=== PATIENT | male | born 1990 | race Caucasian/White ===

== ENCOUNTER 2024-08-24 08:10 | Day surgery (SDC) | payer OTHER ==
[2024-08-24 08:47] VITALS: BMI 26.6
[2024-08-24] MEDS: SODIUM CHLORIDE 0.9% 500 ML INFUS.BAG IV ONE (09:14)
[2024-08-24] MEDS: ACETAMINOPHEN 1000 MG/100 ML BAG IVPB ONE (09:14)
[2024-08-24 09:20] LABS: ABSOLUTE IMMATURE GRANULOCYTES 0.07 x10^3/uL (0.0-0.031); BASOPHILS # 0.06 x10^3/uL (0.01-0.08); EOSINOPHIL % 0.1 % (0.8-7.0); EOSINOPHILS # 0.01 x10^3/uL (0.04-0.54); HEMATOCRIT 46.9 % (40.1-51.0); HEMOGLOBIN 15.7 g/dL (13.7-17.5); MCHC 33.5 g/dl (32.3-36.5); MEAN CELL VOLUME 90.7 fl (79.0-92.2); MEAN PLT VOLUME 10.2 fl (9.4-12.4); MONOCYTE # 0.78 x10^3/uL (0.30-0.82); MONOCYTE % 4.8 % (5.3-12.2); PH,URINE 7.5 (5.0-8.0); PLATELET COUNT 206 x10^3/uL (163-337); URINE APPEARANCE CLEAR; URINE BILIRUBIN NEGATIVE (NEGATIVE); URINE COLOR YELLOW; URINE GLUCOSE (UA) NEGATIVE (NEGATIVE); URINE KETONE NEGATIVE (NEGATIVE); URINE LEUK ESTERASE NEGATIVE (NEGATIVE); URINE NITRITE NEGATIVE (NEGATIVE); URINE PROTEIN NEGATIVE (NEGATIVE); URINE UROBILINOGEN 0.2 mg/dL (0.2-1.0)
[2024-08-24 09:38] LABS: POTASSIUM 3.8 mmol/L (3.5-5.1)
[2024-08-24 09:39] LABS: CALCIUM 9.8 mg/dL (8.5-10.1)
[2024-08-24 09:40] LABS: BLOOD UREA NITROGEN 15.2 mg/dL (7-18)
[2024-08-24 09:41] LABS: ALBUMIN 4.8 g/dl (3.4-5.0)
[2024-08-24 09:44] LABS: CREATININE 0.8 mg/dL (0.55-1.3)
[2024-08-24 09:45] LABS: BILIRUBIN,TOTAL 0.7 mg/dL (0.2-1); TOT PROT 7.7 g/dl (6.4-8.2)
[2024-08-24] MEDS ORDERED: CEFTRIAXONE 1 G/50 ML PREMIX 50 ML IVPB ONE (12:25)
[2024-08-24] MEDS: CEFTRIAXONE 1,000 MG in DEXTROSE 5%-WATER - 50 ML IVPB ONE (12:39)
[2024-08-24] MEDS ORDERED: BUPIVACAINE HCL/PF 0.25% (2.5MG/ML) 10 ML VIAL ONE ×2 (13:24→14:51)
[2024-08-24] MEDS ORDERED: ONDANSETRON 4 MG/2 ML VIAL IVPUSH PRN ×2 (16:41→18:17)
[2024-08-24] MEDS ORDERED: PROMETHAZINE HCL 25 MG/1 ML VIAL IVPB PRN ×2 (16:41→18:17)
[2024-08-24] MEDS ORDERED: PROPOFOL 20 ML ONE (16:41)
[2024-08-24] MEDS ORDERED: MIDAZOLAM HCL 2 MG/2 ML SINGLE DOSE VIAL ONE (16:41)
[2024-08-24] MEDS ORDERED: SUCCINYLCHOLINE CHLORIDE 200 MG/10 ML SYRINGE ONE (16:41)
[2024-08-24] MEDS ORDERED: oxyCODONE HCL 5 MG TABLET PO PRN ×4 (16:41→18:17)
[2024-08-24] MEDS ORDERED: ROCURONIUM BROMIDE 50 MG/5 ML SYRINGE ONE (16:41)
[2024-08-24] MEDS ORDERED: LACTATED RINGERS SOLUTION 1,000 ML IV SCH (16:45)
[2024-08-24] MEDS ORDERED: DEXAMETHASONE SOD PHOSPHATE 4 MG/1 ML VIAL ONE (16:53)
[2024-08-24] MEDS ORDERED: SUGAMMADEX SODIUM 200 MG/2 ML VIAL ONE (16:54)
[2024-08-24] MEDS ORDERED: LIDOCAINE HCL 2% 100 MG/5 ML DISP.SYRIN ONE (16:54)
[2024-08-24] MEDS ORDERED: KETOROLAC TROMETHAMINE 30 MG/1 ML VIAL ONE (17:38)
[2024-08-24] MEDS: BUPIVACAINE HCL/PF 0.25% (2.5MG/ML) 10 ML VIAL IJ ONE ×3 (17:39)
[2024-08-24] MEDS ORDERED: SEVOFLURANE 250 ML BTL ONE (17:43)
[2024-08-24] MEDS ORDERED: ACETAMINOPHEN 500 MG TABLET (FP) PO PRN (18:17)
[2024-08-24] MEDS ORDERED: KETOROLAC TROMETHAMINE 15 MG/ML VIAL IVPUSH PRN (18:17)
[2024-08-24] MEDS: LACTATED RINGERS SOLUTION 1,000 ML IV SCH (18:29)
[2024-08-25 02:03] VITALS: RESP 18
[2024-08-25 08:30] LABS: ABSOLUTE IMMATURE GRANULOCYTES 0.03 x10^3/uL (0.0-0.031); BASOPHILS # 0.02 x10^3/uL (0.01-0.08); EOSINOPHIL % 0.1 % (0.8-7.0); EOSINOPHILS # 0.01 x10^3/uL (0.04-0.54); HEMATOCRIT 42.6 % (40.1-51.0); HEMOGLOBIN 14.2 g/dL (13.7-17.5); MCHC 33.3 g/dl (32.3-36.5); MEAN PLT VOLUME 10.5 fl (9.4-12.4); MONOCYTE % 5.3 % (5.3-12.2); PLATELET COUNT 211 x10^3/uL (163-337); RDW 12.2 % (12.0-15.6)
[2024-08-25 09:08] LABS: CALCIUM 9.2 mg/dL (8.5-10.1)
[2024-08-25 09:09] LABS: ALBUMIN 3.8 g/dl (3.4-5.0); BLOOD UREA NITROGEN 10.4 mg/dL (7-18)
[2024-08-25 09:12] LABS: CREATININE 0.8 mg/dL (0.55-1.3)
[2024-08-25 09:14] LABS: BILIRUBIN,TOTAL 0.7 mg/dL (0.2-1); TOT PROT 6.6 g/dl (6.4-8.2)
[2024-08-25 09:53] VITALS: BP 114/79; PULSE 69; TEMP 98.1
[2024-08-25] MEDS ORDERED: CEFTRIAXONE 1 G/50 ML PREMIX 50 ML IVPB SCH ×2 (10:00)
== END 2024-08-25 11:52 | disposition home or self-care (01) ==
LOC: JER 08:10 → JERBED 12:25 → UNDOADMOB 12:25 → J8W 14:17 → JERBED 14:17 → SUATTDRO 14:22 → JASUSAT 14:22 → J8W 14:48 → JASUSAT 08-25 11:52
PROVIDERS: ATTEND Nurse Practitioner Acute Care
PROC: 3E03329 Introduction of Other Anti-infective into Peripheral Vein, Percutaneous Approach (ICD-10-PCS; 2024-08-24)
PROC: 3E033NZ Introduction of Analgesics, Hypnotics, Sedatives into Peripheral Vein, Percutaneous Approach (ICD-10-PCS; 2024-08-24)
PROC: 3E03329 Introduction of Other Anti-infective into Peripheral Vein, Percutaneous Approach (ICD-10-PCS; principal; 2024-08-24 21:00)
DX: K37 Unspecified appendicitis (principal); R10.31 Right lower quadrant pain; R11.0 Nausea
CPT/HCPCS: 36415; 74177-TC; 80053; 81003; 85025; 86850; 86900; 86901; 87086; 88304-TC; 94760; 99285-25; J0131; Q9967